=== PATIENT | male | born 1990 | race Caucasian/White ===

== ENCOUNTER 2023-05-07 20:10 | Inpatient (IN) ==
[2023-05-07] MEDS ORDERED: CEROVITE ADV FORMULA TAB PO STA (20:29)
[2023-05-07] MEDS ORDERED: THIAMINE HCL 100 MG, FOLIC ACID 1 MG in SODIUM CHLORIDE 0.9% 1000ML 1,000 ML IV STA (20:29)
[2023-05-07] MEDS ORDERED: SODIUM CHLORIDE 0.9% 1000ML 1,000 ML IV ONE (20:29)
[2023-05-07] MEDS ORDERED: LORazepam 2 MG/1 ML VIAL IV STA ×2 (20:30→21:22)
--- NOTE | 2023-05-07 20:34 | Emergency Department Note ---
History of Present Illness General Chief complaint: Detox Request Stated complaint: NAUSEA,NOT FELLING WELL Time Seen by Provider: 05/07/23 20:19 Source: patient, family (I did talk to his father on the telephone as well as hi s brother at bedside), RN notes reviewed and old records reviewed Mode of arrival: ambulatory Limitations: no limitations History of Present Illness This patient 33-year-old male has history of alcoholism comes in after not feeling well. He is vague in his symptoms but just says he has been feeling well has been drinking more than normal he has had some nausea. He has had some vomiting he thinks he may have had some slight blood. His sister is an ER physician and did give him some Zofran. He has mild abdominal discomfort/distention. No chest pain or shortness of breath no fall or trauma no suicidal thoughts. No aspirin or Tylenol use no drugs. When asked him how much he drinks he says too much. The last time he drank was 6 to 7 hours ago he says he started to feel little shaky. He says he is trying to stop drinking and is looking for rehab Home Medications Medication Instructions Recorded Confirmed Type No Known Home Medications 11/14/21 11/14/21 History Allergies Allergy/AdvReac Type Severity Reaction Status Date / Time Cephalosporins Allergy Unknown . Unverified 11/14/21 01:22 Past Med/Surg History Social History Smoking Status: Current some day smoker Preferred Language: Cambodian Feels Safe at Home: Yes Immunizations: Past medical historyalcoholismdenies diabetes or other medical problems. No blood thinner Social historylives locally. Works in a [employer] shop. Review of Systems A total of 10 systems reviewed and were otherwise negative Physical Exam Vital Signs Vital Signs - 24 hr 05/07/23 20:13 05/07/23 21:31 05/07/23 21:31 Temperature 36.7 C Temperature Source Temporal Artery Scan Pulse Rate 135 H 104 H Pulse Rate [Right Finger] Pulse Rate from SpO2 Sensor Pulse Rhythm [Right Finger] Pulse Strength [Right Finger] Respiratory Rate 15 18 Respiratory Effort / Characteristics Respiratory Depth Respiratory Pattern Blood Pressure 161/104 H 143/101 H Blood Pressure [Right Arm] Blood Pressure Mean 123 115 Blood Pressure Mean [Right Arm] Pulse Oximetry 92 93 92 Oxygen Delivery Method Room Air Room Air Nasal Cannula Oxygen Flow Rate 2 Sepsis Recent Fever Within 48 Hours No Sepsis New/Unexplained Change in Mental Status No Sepsis Action Taken by Nursing No Action Required 05/07/23 22:30 05/07/23 23:30 05/07/23 23:00 Temperature Temperature Source Pulse Rate 99 H Pulse Rate [Right Finger] 109 H Pulse Rate from SpO2 Sensor 106 H Pulse Rhythm [Right Finger] Regular Pulse Strength [Right Finger] Normal Respiratory Rate 16 16 Respiratory Effort / Characteristics Non-Labored Spontaneous Respiratory Depth Normal Respiratory Pattern Regular Blood Pressure 135/93 Blood Pressure [Right Arm] 125/87 Blood Pressure Mean 107 Blood Pressure Mean [Right Arm] 99 Pulse Oximetry 95 95 97 Oxygen Delivery Method Room Air Oxygen Flow Rate Sepsis Recent Fever Within 48 Hours Sepsis New/Unexplained Change in Mental Status Sepsis Action Taken by Nursing General: Well developed well nourished young male who appears in no acute distress, breathing comfortably on room air. Normal speech HEENT: Normal cephalic atraumatic. Pupils are equal round and reactive to light. Extraocular movements are intact. Oropharynx is pink with moist mucous membranes. No swelling of the mouth lips or tongue. Neck: Supple with a midline trachea. No meningeal signs or stiffness, no JVD or bruits. No Stridor. Chest: Clear to auscultation bilaterally. No wheezes or rhonchi. No increased work of breathing. Heart: Regular rate and rhythm without murmurs or gallops. Abdomen: Soft nontender, nondistended without rebound guarding or rigidity. Extremities: No cyanosis clubbing or edema. No calf tenderness or assymetry Spine/Back. Non tender to palpation. No CVA tenderness Skin: Good turgor without rashes. Neurologic exam: Cranial nerves two through 12 are intact. Motor and sensation are intact and symmetrical throughout. No tremor. Course Administered Medications Discontinued Medications Sodium Chloride (Nss 1000ml) 1,000 mls @ 999 mls/hr IV .Q1H1M ONE Stop: 05/07/23 21:29 Last Admin: 05/07/23 20:47 Dose: 999 mls/hr Documented By: TROY Thiamine HCl 100 mg/ Folic (Acid 1 mg/ Sodium Chloride) 1,001.2 mls @ 500 mls/hr IV .Q2H1M STA; Protocol Stop: 05/07/23 22:29 Last Admin: 05/07/23 23:26 Dose: 500 mls/hr Documented By: TROY Lorazepam (Lorazepam 2 Mg/1 Ml Vial) 1 mg IV NOW STA Stop: 05/07/23 20:31 Last Admin: 05/07/23 20:47 Dose: 1 mg Documented By: TROY Lorazepam (Lorazepam 2 Mg/1 Ml Vial) 1 mg IV NOW STA Stop: 05/07/23 21:23 Last Admin: 05/07/23 21:50 Dose: 1 mg Documented By: TROY Multivitamins/Minerals (Cerovite Adv Formula Tab) 1 tab PO ONE STA Stop: 05/07/23 20:30 Last Admin: 05/07/23 20:47 Dose: 1 tab Documented By: TROY Medical Decision Making Differential Diagnosis Alcoholism, alcohol withdrawal, electrolyte or metabolic abnormality, intra- abdominal process, GI bleed, anemia, electrolyte or metabolic abnormality, toxicologic, metabolic, infectious Medical Records Attestation: I reviewed the patient's medical records. Home Medications Current Medication List: was personally reviewed by me Laboratory Data Attestation: I reviewed the patient's lab results. 05/07/23 20:47 05/07/23 20:47 Lab Results 05/07/23 05/07/23 05/07/23 Range/Units 20:47 20:47 20:47 WBC 5.55 (4.8-10.8) K/ul RBC 4.74 (4.70-6.10) M/uL Hgb 16.0 (14.0-18.0) g/dl Hct 44.7 (42.0-52.0) % MCV 94.3 (80.0-100.0) fL MCH 33.8 (25.0-34.0) pg MCHC 35.8 (32.0-36.0) g/dL RDW Std Deviation 39.8 (36.4-46.3) fL RDW Coeff of Gracie 11.5 (11.5-14.5) % Plt Count 175 (130-400) K/uL MPV 9.1 L (9.4-12.4) fL Immature Gran % (Auto) 0.4 % Neut % (Auto) 45.9 % Lymph % (Auto) 45.0 % Collin % (Auto) 5.6 % Eos % (Auto) 2.0 % Baso % (Auto) 1.1 % Neut # (Auto) 2.55 (1.40-6.50) K/uL Lymph # (Auto) 2.50 (1.2-3.4) K/uL Collin # (Auto) 0.31 (0.11-0.59) K/uL Eos # (Auto) 0.11 (0-0.50) K/uL Baso # (Auto) 0.06 (0-0.2) K/uL Immature Gran # (Auto) 0.02 (0.01-0.20) K/uL PT 11.0 (9.0-12.0) Seconds INR 1.0 (0.9-1.1) APTT 27.2 (21.0-31.0) Seconds PTT Ratio 1.0 Sodium 139 (136-145) mmol/L Potassium 3.8 (3.5-5.1) mmol/L Chloride 99 (98-107) mmol/L Carbon Dioxide 26 (21-32) mmol/L Anion Gap 14 H (3-11) BUN 7 (6-23) mg/dl Creatinine 0.91 (0.6-1.4) mg/dl Est Cr Clr Drug Dosing 135.4 ml/min Est GFR ( Amer) 126.1 ml/min Est GFR (Non-Af Amer) 108.8 ml/min BUN/Creatinine Ratio 7.7 L (10-20) Glucose 111 H (70-99(Fasting)) mg/dl Calcium 9.2 (8.6-10.3) mg/dl Magnesium 2.4 (1.7-2.4) mg/dl Total Bilirubin 0.7 (0.2-1.0) mg/dl AST 130 H (13-39) U/L ALT 61 H (7-52) U/L Alkaline Phosphatase 110 H (34-104) U/L Total Protein 8.2 (6.0-8.3) gm/dl Albumin 4.8 (3.4-5.0) gm/dl Globulin 3.4 (2.5-4.0) gm/dl Albumin/Globulin Ratio 1.4 (0.9-2) Lipase 55 (11-82) U/L Ethyl Alcohol mg/dL (<10.0) mg/dl SARS-CoV-2, RNA, NAAT (NEGATIVE) 05/07/23 05/07/23 Range/Units 20:47 20:47 WBC (4.8-10.8) K/ul RBC (4.70-6.10) M/uL Hgb (14.0-18.0) g/dl Hct (42.0-52.0) % MCV (80.0-100.0) fL MCH (25.0-34.0) pg MCHC (32.0-36.0) g/dL RDW Std Deviation (36.4-46.3) fL RDW Coeff of Gracie (11.5-14.5) % Plt Count (130-400) K/uL MPV (9.4-12.4) fL Immature Gran % (Auto) % Neut % (Auto) % Lymph % (Auto) % Collin % (Auto) % Eos % (Auto) % Baso % (Auto) % Neut # (Auto) (1.40-6.50) K/uL Lymph # (Auto) (1.2-3.4) K/uL Collin # (Auto) (0.11-0.59) K/uL Eos # (Auto) (0-0.50) K/uL Baso # (Auto) (0-0.2) K/uL Immature Gran # (Auto) (0.01-0.20) K/uL PT (9.0-12.0) Seconds INR (0.9-1.1) APTT (21.0-31.0) Seconds PTT Ratio Sodium (136-145) mmol/L Potassium (3.5-5.1) mmol/L Chloride (98-107) mmol/L Carbon Dioxide (21-32) mmol/L Anion Gap (3-11) BUN (6-23) mg/dl Creatinine (0.6-1.4) mg/dl Est Cr Clr Drug Dosing ml/min Est GFR ( Amer) ml/min Est GFR (Non-Af Amer) ml/min BUN/Creatinine Ratio (10-20) Glucose (70-99(Fasting)) mg/dl Calcium (8.6-10.3) mg/dl Magnesium (1.7-2.4) mg/dl Total Bilirubin (0.2-1.0) mg/dl AST (13-39) U/L ALT (7-52) U/L Alkaline Phosphatase (34-104) U/L Total Protein (6.0-8.3) gm/dl Albumin (3.4-5.0) gm/dl Globulin (2.5-4.0) gm/dl Albumin/Globulin Ratio (0.9-2) Lipase (11-82) U/L Ethyl Alcohol mg/dL 433.2 H (<10.0) mg/dl SARS-CoV-2, RNA, NAAT NEGATIVE (NEGATIVE) ECG Data Attestation: I personally reviewed and interpreted this ECG as follows: Indication: + weakness Rate (beats per minute): 106 Rhythm: + sinus tachycardia ECG Intervals/blocks: + Incomplete right bundle branch block, + Normal QT and + Normal [place] ECG [place]: + Normal ECG ST segments: + Normal ST segments ECG Findings: no PACs or no PVCs Comparison ECG Date: from (03/12/18) Change: no significant change MDM Narrative This patient is a 33-year-old male who has a history of alcoholism, comes in after not feeling well. He is tachycardic and hypertensive I am worried about withdrawal. IV access was established and he was given Ativan 1 mg IV, he does not appear to be overtly shaky. Multiple blood testing was obtained including blood alcohol. He was also given banana bag with thiamine and multivitamin. He was reassessed frequently. He did receive additional Ativan 1 mg IV and is resting comfortably. His blood alcohol came back elevated at 433. He has no other significant acute electrolyte or metabolic abnormalities. His LFTs are mildly elevated. COVID test was negative. He did receive IV fluid as well as IV banana bag. I talked him at length he was having withdrawal symptoms despite having alcohol level above 400. I do think he needs to be admitted for hydration and withdrawal type symptoms he tells me that he does want to go to rehab and will be admitted for to the medical team for medical alcohol withdrawal. I discussed case with at length with Dr. Alves who will see in the ER for these measures Continuous cardiac monitoring: An order was placed in EMR for continuous cardiac monitoring: Upon my evaluation patient to be in sinus tachycardia with a rate of 100 Impression & Plan Alcohol withdrawal syndrome, Alcoholic, Alcoholic intoxication, COVID Discharge Plan Visit Data Chief Complaint: Detox Request Stated Complaint: NAUSEA,NOT FELLING WELL ED Provider: Giancarlo Qiu Discharge Problem: Alcohol withdrawal syndrome, Alcoholic, Alcoholic intoxication, COVID Forms Stand Alone Forms: [facility], Suicide Prevention Resources Prescriptions Prescriptions: No Action No Known Home Medications Referrals Referrals: Aron Cameron MD [Primary Care Provider] - Alcohol withdrawal syndrome Qualifiers: Complication of substance-induced condition: uncomplicated Qualified Code(s): F10.930 - Alcohol use, unspecified with withdrawal, uncomplicated Alcoholic intoxication Qualifiers: Complication of substance-induced condition: uncomplicated Qualified Code(s): F10.920 - Alcohol use, unspecified with intoxication, uncomplicated
[2023-05-07 21:31] LABS: Albumin Globulin Ratio 1.4 (0.9-2); Albumin Level 4.8 gm/dl (3.4-5.0); BUN Creatinine Ratio 7.7 (10-20); Bilirubin,Total 0.7 mg/dl (0.2-1.0); Calcium 9.2 mg/dl (8.6-10.3); Creatinine Clr Calc Pharmacy 135.4 ml/min; Est GFR (African American) 126.1 ml/min; Est GFR (Non-African American) 108.8 ml/min; Globulin 3.4 gm/dl (2.5-4.0); Magnesium 2.4 mg/dl (1.7-2.4); Potassium 3.8 mmol/L (3.5-5.1); Total Protein 8.2 gm/dl (6.0-8.3)
[2023-05-07 21:51] LABS: Partial Thromboplastin Time 27.2 Seconds (21.0-31.0)
[2023-05-07 21:53] LABS: Basophils # (auto) 0.06 K/uL (0-0.2); Basophils % (auto) 1.1 %; Eosinophils # (auto) 0.11 K/uL (0-0.50); Hematocrit (blood only) 44.7 % (42.0-52.0); Immature Granulocytes # (auto) 0.02 K/uL (0.01-0.20); Immature Granulocytes % (auto) 0.4 %; Mean Corpuscular Hemoglobin 33.8 pg (25.0-34.0); Mean Corpuscular Hgb Conc 35.8 g/dL (32.0-36.0); Mean Corpuscular Volume 94.3 fL (80.0-100.0); Mean Platelet Volume 9.1 fL (9.4-12.4); Monocytes # (auto) 0.31 K/uL (0.11-0.59); Monocytes % (auto) 5.6 %; Neutrophils # (auto) 2.55 K/uL (1.40-6.50); Neutrophils % (auto) 45.9 %; Platelet Count 175 K/uL (130-400); RDW Coefficient of Variation 11.5 % (11.5-14.5); RDW Standard Deviation 39.8 fL (36.4-46.3); Red Blood Count 4.74 M/uL (4.70-6.10); White Blood Count 5.55 K/ul (4.8-10.8)
--- NOTE | 2023-05-07 22:53 | History & Physical Report ---
Date of Service May 07, 2023 Assessment & Plan (1) Alcohol withdrawal syndrome: Plan: Collin Alejandro is a 33yo male with history of alcohol abuse presenting with complaint of withdrawal. He drinks 10 12oz high EtOH beers daily (appx 18-20 units of EtOH/day). Last drink was appx 8 hours prior to arrival. He has been cutting back for the last several days - has had mild withdrawal symptoms x 2 days. EtOH level of 433 -Admit to PCU -Librium taper -Ativan as needed -Thiamine and Folic acid -Zofran as needed for nausea -Tylenol as needed for pain or fever -Acute alcohol hepatitis with AST of 130, ALT of 61 - expected 2:1 pattern. No evidence of synthetic dysfunction - INR, platelets, Albumin WNL F/E/N - Heplock. Electrolytes WNL. NPO with chips/sips Ppx - low risk for DVT Code - full Dispo -Admit to PCU History of Present Illness Chief Complaint: EtOH withdrawal Primary Care Provider: Aron Cameron MD Collin Alejandro is a 33yo male with history of EtOH abuse, prior withdrawal presenting with EtOH intoxication - possible withdrawal symptoms. Patient reports drinking approximately 10 12oz high alcohol (8%) beers daily. Last drink was approximately 8 hours prior to arrival. He denies drinking liquor or wine. Denies additional substance use. He has been trying to cut down on his alcohol intake for the last several days. He developed some mild withdrawal symptoms today prior to arrival - symptoms have been progressing over the last two days. ER Course: Ativan MVI Banana bag Allergies Allergy/AdvReac Type Severity Reaction Status Date / Time Cephalosporins Allergy Unknown . Unverified 11/14/21 01:22 Home Medications Medication Instructions Recorded Confirmed Type No Known Home Medications 11/14/21 11/14/21 History Past Med/Surg History Medical History Alcohol abuse Surgical History (Updated 05/08/23 @ 05:27 by Katerin Alves DO) No significant past surgical history Family History (Updated 05/08/23 @ 05:27 by Katerin Alves DO) Other Thyroid disease Social History Smoking Status: Current some day smoker Cigarettes Per Day: Half a pack per week; Second Hand Exposure: No; Do You Dip or Chew Tobacco: No; Tobacco Cessation Education Requested by Patient: No Hx Alcohol Use: Yes Alcohol type: beer Hx Substance Use: No Preferred Language: Wallisian Communication Ability: Effective Data Miner Required: No Beliefs That Will Affect Care: None Current Living Situation: Parent and Family Current Living Situation Comment: Lives with brother and sometimes parents Other Information That Helps Us Care for You: No Feels Safe at Home: Yes Safety Concerns: Feels Safe At This Time Assistive Devices: None Review of Systems Review of Systems: All systems reviewed & are unremarkable except as noted in HPI & below Physical Exam Physical Exam: General: patient resting comfortably, NAD, non-toxic in appearance, AA&O x 4 Skin: warm, dry, intact, no rashes or lesions HEENT: NC/AT, PERRL, EOMI, anicteric sclera, conjunctiva without injection, external ear normal to inspection and nontender, nares patent, moist mucus membranes, dentition intact, no oropharyngeal lesions, neck supple, trachea midline, no LAD, no thyromegaly, no JVD Heart: +S1/S2, regular, tachycardic, no m/r/g Lungs: equal air entry bilaterally, no rales/rhonchi/wheezes Abd: +BS, soft, NT/ND, no masses/organomegaly/ascites Ext: warm, 2+ pulses in UE/LE bilaterally, no clubbing/cyanosis or edema Neuro: nonfocal, patient AA&O x 4, speech intact, no facial droop, moving all extremities on command with equal strength 5/5 Results & Data Results & Data Vital Signs (Past 12 Hours) Vital Signs Temp Pulse Resp BP Pulse Ox O2 Del Method O2 Flow Rate 05/07/23 22:30 99 H 135/93 95 05/07/23 21:31 104 H 18 143/101 H 92 Nasal Cannula 2 05/07/23 21:31 93 Room Air 05/07/23 20:13 36.7 C 135 H 15 161/104 H 92 Room Air Laboratory Results Laboratory Results WBC 5.55 K/ul (4.8-10.8) 05/07/23 20:47 RBC 4.74 M/uL (4.70-6.10) 05/07/23 20:47 Hgb 16.0 g/dl (14.0-18.0) 05/07/23 20:47 Hct 44.7 % (42.0-52.0) 05/07/23 20:47 MCV 94.3 fL (80.0-100.0) 05/07/23 20:47 MCH 33.8 pg (25.0-34.0) 05/07/23 20:47 MCHC 35.8 g/dL (32.0-36.0) 05/07/23 20: RDW Std Deviation 39.8 fL (36.4-46.3) 05/07/23 20: RDW Coeff of Gracie 11.5 % (11.5-14.5) 05/07/23 20: Plt Count 175 K/uL (130-400) 05/07/23 20: MPV 9.1 fL (9.4-12.4) L 05/07/23 20:47 Immature Gran % (Auto) 0.4 % 05/07/23 20:47 Neut % (Auto) 45.9 % 05/07/23 20:47 Lymph % (Auto) 45.0 % 05/07/23 20:47 [place] % (Auto) 5.6 % 05/07/23 20:47 Eos % (Auto) 2.0 % 05/07/23 20:47 Baso % (Auto) 1.1 % 05/07/23 20:47 Neut # (Auto) 2.55 K/uL (1.40-6.50) 05/07/23 20:47 Lymph # (Auto) 2.50 K/uL (1.2-3.4) 05/07/23 20:47 [place] # (Auto) 0.31 K/uL (0.11-0.59) 05/07/23 20:47 Eos # (Auto) 0.11 K/uL (0-0.50) 05/07/23 20:47 Baso # (Auto) 0.06 K/uL (0-0.2) 05/07/23 20:47 Immature Gran # (Auto) 0.02 K/uL (0.01-0.20) 05/07/23 20:47 PT 11.0 Seconds (9.0-12.0) 05/07/23 20:47 INR 1.0 (0.9-1.1) 05/07/23 20:47 APTT 27.2 Seconds (21.0-31.0) 05/07/23 20:47 PTT Ratio 1.0 05/07/23 20:47 Sodium 139 mmol/L (136-145) 05/07/23 20:47 Potassium 3.8 mmol/L (3.5-5.1) 05/07/23 20:47 Chloride 99 mmol/L (98-107) 05/07/23 20:47 Carbon Dioxide 26 mmol/L (21-32) 05/07/23 20:47 Anion Gap 14 (3-11) H 05/07/23 20:47 BUN 7 mg/dl (6-23) 05/07/23 20:47 Creatinine 0.91 mg/dl (0.6-1.4) 05/07/23 20:47 Est Cr Clr Drug Dosing 135.4 ml/min 05/07/23 20:47 Est GFR ( Amer) 126.1 ml/min 05/07/23 20:47 Est GFR (Non-Af Amer) 108.8 ml/min 05/07/23 20:47 BUN/Creatinine Ratio 7.7 (10-20) L 05/07/23 20:47 Glucose 111 mg/dl (70-99(Fasting)) H 05/07/23 20:47 Calcium 9.2 mg/dl (8.6-10.3) 05/07/23 20:47 Magnesium 2.4 mg/dl (1.7-2.4) 05/07/23 20:47 Total Bilirubin 0.7 mg/dl (0.2-1.0) 05/07/23 20:47 AST 130 U/L (13-39) H 05/07/23 20:47 ALT 61 U/L (7-52) H 05/07/23 20:47 Alkaline Phosphatase 110 U/L (34-104) H 05/07/23 20:47 Total Protein 8.2 gm/dl (6.0-8.3) 05/07/23 20:47 Albumin 4.8 gm/dl (3.4-5.0) 05/07/23 20:47 Globulin 3.4 gm/dl (2.5-4.0) 05/07/23 20:47 Albumin/Globulin Ratio 1.4 (0.9-2) 05/07/23 20:47 Lipase 55 U/L (11-82) 05/07/23 20:47 Ethyl Alcohol mg/dL 433.2 mg/dl (<10.0) H 05/07/23 20:47 SARS-CoV-2, RNA, NAAT NEGATIVE (NEGATIVE) 05/07/23 20:47 PG Care Time/CCT Total # of Minutes Spent Total Time Spent with Patient: Total time spent is greater than 50% in coordination of care (as documented) at patient's floor/unit and/or counseling patient: Coding Level of Care Code 51179 INT INP/OBS CARE 2/55MIN Diagnoses Alcohol withdrawal syndrome F10.930 Complication of substance-induced condition: uncomplicated (1) Alcohol withdrawal syndrome Complication of substance-induced condition: uncomplicated Qualified Code(s): F10.930 - Alcohol use, unspecified with withdrawal, uncomplicated
[2023-05-08] MEDS ORDERED: chlordiazePOXIDE ALCOHOL WITHDRAWL 50MG PO STA (00:32)
[2023-05-08] MEDS ORDERED: ACETAMINOPHEN 325 MG TAB PO PRN (00:32)
[2023-05-08] MEDS ORDERED: LORazepam 2 MG/1 ML VIAL IV PRN ×3 (00:32)
[2023-05-08] MEDS ORDERED: chlordiazePOXIDE HCl 25 MG CAP PO SCH (00:32)
[2023-05-08] MEDS ORDERED: chlordiazePOXIDE ALCOHOL WITHDRAWL 25MG PO STA (00:32)
[2023-05-08] MEDS ORDERED: ONDANSETRON INJ 2 MG/ML 2 ML VIAL IV PRN (00:32)
[2023-05-08] MEDS ORDERED: Ativan IV Alcohol Withdrawal--Active Protocol IV PRN (00:32)
[2023-05-08] MEDS: chlordiazePOXIDE HCl 25 MG CAP PO SCH ×4 (01:11→18:00)
[2023-05-08] MEDS: SODIUM CHLORIDE 0.9% 1000ML 1,000 ML IV SCH ×2 (03:32→11:49)
[2023-05-08 06:50] LABS: Hematocrit (blood only) 39.1 % (42.0-52.0); Hemoglobin 13.9 g/dl (14.0-18.0); Mean Corpuscular Hemoglobin 33.5 pg (25.0-34.0); Mean Corpuscular Hgb Conc 35.5 g/dL (32.0-36.0); Mean Corpuscular Volume 94.2 fL (80.0-100.0); Mean Platelet Volume 9.1 fL (9.4-12.4); Platelet Count 127 K/uL (130-400); RDW Coefficient of Variation 11.4 % (11.5-14.5); RDW Standard Deviation 39.5 fL (36.4-46.3); Red Blood Count 4.15 M/uL (4.70-6.10); White Blood Count 4.82 K/ul (4.8-10.8)
--- NOTE | 2023-05-08 06:52 | Hospitalist Progress Note ---
Date of Service May 08, 2023 Assessment & Plan (1) Alcohol withdrawal syndrome: (2) Transaminitis: (3) Alcoholic: Plan Collin Alejandro is a 33yo male with history of alcohol abuse presenting with complaint of withdrawal. He drinks 10 12oz high EtOH beers daily (appx 18-20 units of EtOH/day). Last drink was appx 8 hours prior to arrival. He has been cutting back for the last several days - has had mild withdrawal symptoms x 2 days. EtOH level of 433 at time of admission. Alcohol withdrawal syndrome -Librium taper -Ativan as needed -Thiamine and Folic acid -Zofran as needed for nausea -Tylenol as needed for pain or fever -No signs of DTs Alcoholic -Case management consulted to discuss resources for alcohol abstinence and possible rehab. -Can be further discussed once patient has gone through withdrawal. Transaminitis (resolved) -Acute alcohol hepatitis with AST of 130, ALT of 61 - expected 2:1 pattern. No evidence of synthetic dysfunction - INR, platelets, Albumin WNL -AST downtrending and ALT within normal limits on 05/08. F/E/N - Heplock. Electrolytes WNL. NPO with chips/sips Ppx - low risk for DVT Code - full Dispo -Admit to PCU Admission and Anticipated Discharge Date Admission Date: May 07, 2023 Supervising Physician Co-Signing Physician Notes I personally examined the patient and verified all joe points of history and exam, discussed case, and agree with decision making and plan documented by Dr. Carballo. Patient resting comfortably in bed during exam. He has a longstanding history of alcohol abuse, notes that prior to admission he was drinking approximately twelve 9% beers daily. Patient is interested in pursuing rehabilitation, case management has been notified to assist. Subjective Patient seen bedside this morning. He states that he has been doing fine. He feels tired and a little shaky. He does state that with his previous alcohol withdrawals he has not had any delirium tremors or seizures. He denies any abdominal pain, nausea, or vomiting. With discussing alcohol history patient has stopped for about 3 months in the summer 2017. He then switched from liquid to beer. He is interested in seeking resources to help with his alcohol addiction. Review of Systems Review of Systems: All systems reviewed & are unremarkable except as noted in Subjective Physical Exam Physical Exam: Constitutional: well-appearing, no acute distress HEENT: NCAT, no conjunctival injection CV: regular rhythm, no murmur appreciated, extremities well-perfused, no LE edema Resp: CTABL, no wheezes/rales/rhonchi appreciated, no increased work of breathing GI: soft, nondistended, nontender, BS normoactive MSK: no gross deformities appreciated Skin: warm, dry, no rash appreciated Neuro: alert, oriented, no focal neurologic deficit appreciated Results & Data Results & Data Vital Signs (Past 12 Hours) Vital Signs Temp Pulse Pulse Resp BP BP Pulse Ox 05/08/23 03:00 36.6 C 122 H 23 103/66 92 05/08/23 00:32 37.2 C 117 H 16 129/101 H 96 05/08/23 00:55 108 H 05/08/23 00:32 05/07/23 23:00 16 97 05/07/23 23:30 109 H 16 125/87 95 05/07/23 22:30 99 H 135/93 95 05/07/23 21:31 104 H 18 143/101 H 92 05/07/23 21:31 93 05/07/23 20:13 36.7 C 135 H 15 161/104 H 92 Pulse Ox O2 Del Method O2 Del Method O2 Flow Rate 05/08/23 03:00 Room Air 05/08/23 00:32 Room Air 05/08/23 00:55 05/08/23 00:32 95 Room Air 05/07/23 23:00 05/07/23 23:30 Room Air 05/07/23 22:30 05/07/23 21:31 Nasal Cannula 2 05/07/23 21:31 Room Air 05/07/23 20:13 Room Air Laboratory Results 05/08/23 06:30 05/08/23 06:30 Resident Activity Tracking Resident Involvement: Resident Care Provided Care Provided: Adult Hospital Medicine (1) Alcohol withdrawal syndrome Complication of substance-induced condition: uncomplicated Qualified Code(s): F10.930 - Alcohol use, unspecified with withdrawal, uncomplicated
[2023-05-08 07:11] LABS: Albumin Level 4.1 gm/dl (3.4-5.0); Bilirubin Direct 0.3 mg/dl (0-0.2); Bilirubin,Total 0.9 mg/dl (0.2-1.0); Calcium 8.1 mg/dl (8.6-10.3); Creatinine Clr Calc Pharmacy 151.7 ml/min; Est GFR (African American) 132.8 ml/min; Est GFR (Non-African American) 114.6 ml/min; Potassium 3.7 mmol/L (3.5-5.1)
[2023-05-08] MEDS: THIAMINE HCL 100 MG TAB PO SCH (08:37)
[2023-05-08] MEDS: FOLIC ACID 1 MG TAB PO SCH (08:37)
--- NOTE | 2023-05-08 14:11 | Electrocardiogram Report ---
Test Reason : Blood Pressure : / mmHG Vent. Rate : 106 BPM Atrial Rate : 106 BPM P-R Int : 198 ms QRS Dur : 108 ms QT Int : 334 ms P-R-T Axes : 056 082 014 degrees QTc Int : 443 ms Sinus tachycardia Incomplete right bundle branch block Cannot rule out Anterior infarct (cited on or before 12-MAR-2018) Abnormal ECG When compared with ECG of 12-MAR-2018 13:05, Incomplete right bundle branch block is now Present Questionable change in initial forces of Anterior leads Confirmed by Van Avery ([id number]) on 05/08/2023 2:11:06 PM Referred By: REFERRED SELF Confirmed By:Van Avery
[2023-05-08 14:45] LABS: Appearance Urine Clear (Clear); Bilirubin Urine Negative (Negative); Blood Urine Negative (Negative); Color Urine Dark Yellow; Glucose Urine UA Negative (Negative); Ketones Urine Trace (Negative); Leukocyte Esterase Urine Negative (Negative); Nitrite Urine Negative (Negative); Protein Urine Negative (Negative); Specific Gravity Urine 1.017 (1.000-1.030); Urobilinogen Urine Negative (Negative); pH Urine 5.5 (4.5-7.5)
[2023-05-08] MEDS ORDERED: MELATONIN 3 MG TAB PO PRN (22:00)
[2023-05-09] MEDS ORDERED: chlordiazePOXIDE HCl 25 MG CAP PO SCH (01:00)
[2023-05-09] MEDS: chlordiazePOXIDE HCl 25 MG CAP PO SCH ×3 (04:01→20:08)
--- NOTE | 2023-05-09 06:47 | Hospitalist Progress Note ---
Date of Service May 09, 2023 Assessment & Plan (1) Alcohol withdrawal syndrome: (2) Transaminitis: (3) Alcoholic: Plan Collin Alejandro is a 33yo male with history of alcohol abuse presenting with complaint of withdrawal. He drinks 10 12oz high EtOH beers daily (appx 18-20 units of EtOH/day). Last drink was appx 8 hours prior to arrival. He has been cutting back for the last several days - has had mild withdrawal symptoms x 2 days. EtOH level of 433 at time of admission. Alcohol withdrawal syndrome -Librium taper, end on 05/11. -Ativan as needed. So far has not needed any Ativan. -Thiamine and Folic acid daily. -Zofran as needed for nausea -Tylenol as needed for pain or fever -No signs of DTs Alcoholic -Case management consulted to discuss resources for alcohol abstinence and possible rehab. -Resources given to the patient on 05/09. We will look into possibly doing rehab though may be difficult to get in to inpatient rehab given lack of health insurance. Transaminitis -At time of admission, acute alcohol hepatitis with AST of 130, ALT of 61 - expected 2:1 pattern. No evidence of synthetic dysfunction - INR, platelets, Albumin WNL -On 05/09 AST increased to 430, ALT to 125, alk phos elevated, and an elevated bilirubin of 2.8. Decreased platelet count. Albumin stable at this point. -PT/INR and lipase were normal. Will order right upper quadrant ultrasound and consider CT though patient is not having much pain at this time. -(-0.4 points) discriminant function, no need for glucocorticoid therapy at this time. We will continue to monitor. -We will get repeat labs at 1500 today. F/E/N - Heplock. Electrolytes WNL. We will advance diet as tolerated. Ppx - low risk for DVT Code - full Dispo -Admit to PCU Admission and Anticipated Discharge Date Admission Date: May 07, 2023 Supervising Physician Co-Signing Physician Notes I personally examined the patient and verified all joe points of history and exam, discussed case, and agree with decision making and plan documented by Dr. Carballo. Patient resting comfortably in bed, states that shakiness has improved, no tremor on exam, last AWSS 1, VSS. Acute alcoholic hepatitis with elevation of AST and ALT in addition to bilirubin present. We will continue to monitor LFTs for continued downward trend. Repeat ultrasound pending, patient with known hepatic steatosis. Patient interested in rehabilitation but is without insurance coverage, per patient he has been working with case management for application to Medicaid. Subjective Patient was seen bedside this morning. He is no longer shaky. He denies any current nausea or vomiting. Did have some nausea last night but improved with nausea meds. Denies any abdominal pain or chest pain. Denies any hallucinations or tremors. Review of Systems Review of Systems: All systems reviewed & are unremarkable except as noted in Subjective Physical Exam Physical Exam: Constitutional: well-appearing, no acute distress HEENT: NCAT, no conjunctival injection CV: regular rhythm, no murmur appreciated, extremities well-perfused, no LE edema Resp: CTABL, no wheezes/rales/rhonchi appreciated, no increased work of breathing GI: soft, nondistended, mild right upper quadrant tenderness, BS normoactive MSK: no gross deformities appreciated Skin: warm, dry, no rash appreciated Neuro: alert, oriented, no focal neurologic deficit appreciated Results & Data Results & Data Vital Signs (Past 12 Hours) Vital Signs Temp Pulse Pulse Resp BP Pulse Ox O2 Del Method 05/09/23 03:47 36.9 C 75 18 118/75 96 Room Air 05/08/23 22:10 79 05/08/23 23:00 36.7 C 72 19 124/84 95 Room Air 05/08/23 21:40 36.8 C 77 16 145/86 H 96 Room Air 05/08/23 19:00 36.7 C 78 20 128/78 97 Room Air Laboratory Results 05/09/23 06:57 05/09/23 06:57 Resident Activity Tracking Resident Involvement: Resident Care Provided Care Provided: Adult Hospital Medicine (1) Alcohol withdrawal syndrome Complication of substance-induced condition: uncomplicated Qualified Code(s): F10.930 - Alcohol use, unspecified with withdrawal, uncomplicated
[2023-05-09 07:44] LABS: Albumin Globulin Ratio 1.5 (0.9-2); Albumin Level 3.9 gm/dl (3.4-5.0); BUN Creatinine Ratio 21.9 (10-20); Bilirubin,Total 2.8 mg/dl (0.2-1.0); Creatinine Clr Calc Pharmacy 196.3 ml/min; Est GFR (Non-African American) 126.9 ml/min; Globulin 2.6 gm/dl (2.5-4.0); Potassium 3.9 mmol/L (3.5-5.1); Total Protein 6.5 gm/dl (6.0-8.3)
[2023-05-09 07:48] LABS: Hematocrit (blood only) 35.7 % (42.0-52.0); Hemoglobin 12.6 g/dl (14.0-18.0); Mean Corpuscular Hemoglobin 34.2 pg (25.0-34.0); Mean Corpuscular Hgb Conc 35.3 g/dL (32.0-36.0); Mean Platelet Volume 9.4 fL (9.4-12.4); Platelet Count 95 K/uL (130-400); Platelet Estimate Decreased (Normal); RDW Coefficient of Variation 11.3 % (11.5-14.5); RDW Standard Deviation 40.2 fL (36.4-46.3); Red Blood Count 3.68 M/uL (4.70-6.10); White Blood Count 4.57 K/ul (4.8-10.8)
[2023-05-09] MEDS: THIAMINE HCL 100 MG TAB PO SCH (08:07)
[2023-05-09] MEDS: FOLIC ACID 1 MG TAB PO SCH (08:07)
[2023-05-09 10:58] LABS: Prothrombin Time 11.3 Seconds (9.0-12.0)
[2023-05-09] MEDS: SODIUM CHLORIDE 0.9% 1000ML 1,000 ML IV SCH ×2 (14:57→23:18)
[2023-05-09 15:56] LABS: Albumin Globulin Ratio 1.5 (0.9-2); Albumin Level 4.1 gm/dl (3.4-5.0); BUN Creatinine Ratio 15.6 (10-20); Bilirubin,Total 2.5 mg/dl (0.2-1.0); Calcium 8.2 mg/dl (8.6-10.3); Creatinine Clr Calc Pharmacy 196.3 ml/min; Est GFR (Non-African American) 126.9 ml/min; Globulin 2.8 gm/dl (2.5-4.0); Potassium 4.2 mmol/L (3.5-5.1); Total Protein 6.9 gm/dl (6.0-8.3)
--- NOTE | 2023-05-09 18:49 | Ultrasound Report ---
US liver CLINICAL HISTORY: Elevated AST/ALT, bilirubin, alk phos w/ tenderness TECHNIQUE: Multiple real-time sonographic images of the right upper quadrant were obtained. Comparison: Comparison is made to bilateral quadrant ultrasound 03/13/2018 FINDINGS: The liver is diffusely echogenic in appearance with poor ultrasound penetration, with normal contour, which is consistent with fatty infiltration. No focal mass lesions are seen. No intrahepatic duct al dilatation is seen. No gallstones or sludge are identified within the gallbladder. The gallbladde r wall is not thickened. There is no pericholecystic fluid present. A sonographic Pantoja's sign was n ot elicited by the sport intern. The common duct measures 0.3 cm in diameter at the level of the hep atic artery. The visualized portions of the pancreas appear normal. The right kidney shows normal echogenicity, cortical thickness and renal contour. The right kidney sh ows no evidence of hydronephrosis or mass. No ascites or free fluid is seen in Sorto's pouch. IMPRESSION: Hepatic steatosis without other acute abnormalities. ACT 112: Negative or not required by law. Electronically signed by: Michael Kwon M.D. 05/09/2023 6:48 PM
[2023-05-10] MEDS ORDERED: chlordiazePOXIDE HCl 25 MG CAP PO SCH (01:00)
[2023-05-10 06:39] LABS: Basophils # (auto) 0.03 K/uL (0-0.2); Basophils % (auto) 0.8 %; Eosinophils # (auto) 0.24 K/uL (0-0.50); Eosinophils % (auto) 6.6 %; Hematocrit (blood only) 34.4 % (42.0-52.0); Hemoglobin 12.3 g/dl (14.0-18.0); Immature Granulocytes # (auto) 0.01 K/uL (0.01-0.20); Immature Granulocytes % (auto) 0.3 %; Lymphocytes # (auto) 0.94 K/uL (1.2-3.4); Lymphocytes % (auto) 25.8 %; Mean Corpuscular Hemoglobin 33.7 pg (25.0-34.0); Mean Corpuscular Hgb Conc 35.8 g/dL (32.0-36.0); Mean Corpuscular Volume 94.2 fL (80.0-100.0); Mean Platelet Volume 9.4 fL (9.4-12.4); Monocytes # (auto) 0.19 K/uL (0.11-0.59); Monocytes % (auto) 5.2 %; Neutrophils # (auto) 2.24 K/uL (1.40-6.50); Neutrophils % (auto) 61.3 %; Platelet Count 51 K/uL (130-400); RDW Coefficient of Variation 11.1 % (11.5-14.5); RDW Standard Deviation 38.3 fL (36.4-46.3); Red Blood Count 3.65 M/uL (4.70-6.10); White Blood Count 3.65 K/ul (4.8-10.8)
[2023-05-10 06:58] LABS: Albumin Globulin Ratio 1.4 (0.9-2); Albumin Level 3.7 gm/dl (3.4-5.0); BUN Creatinine Ratio 9.2 (10-20); Creatinine Clr Calc Pharmacy 191.1 ml/min; Est GFR (African American) 146.1 ml/min; Globulin 2.6 gm/dl (2.5-4.0); Potassium 3.9 mmol/L (3.5-5.1); Total Protein 6.3 gm/dl (6.0-8.3)
[2023-05-10 07:04] LABS: Prothrombin Time 11.4 Seconds (9.0-12.0)
--- NOTE | 2023-05-10 07:30 | Hospitalist Progress Note ---
Date of Service May 10, 2023 Assessment & Plan (1) Alcohol withdrawal syndrome: (2) Transaminitis: (3) Alcoholic: Plan Collin Alejandro is a 33yo male with history of alcohol abuse who presented in withdrawal. He drinks 10 12oz high EtOH beers daily (appx 18-20 units of EtOH /day). Last drink was appx 8 hours prior to arrival 05/07/23. He has been cutting back for the last several days - has had mild withdrawal symptoms x 2 days prior to arrival. EtOH level of 433 at time of admission. Alcohol withdrawal syndrome - Librium taper, end on 05/11. - Ativan PRN (patient has not required) - Thiamine and Folic acid daily. - Zofran PRN for nausea - Tylenol PRN for pain/fever --- No active tremors or evidence of DT, vitals stable, no active hallucination --- Patient requesting dispo to rehabilitation facility and evaluation for underlying depression Alcohol Abuse - CM consulted for assistance with disposition planning, requesting rehabilitation * Patient currently w/o insurance, will likely benefit from medical assistance, CM following - Resources given to the patient on 05/09 --- Patient and parents expressed interest in [facility] (w/ mental health resources) Transaminitis - Acute alcohol hepatitis/transaminitis present on admission (AST 130/ALT 61), INR/platelets/albumin wnl * On 05/09 labs elevated to: AST 430/ALT 125, alk phos elevated, elevated bilirubin 2.8, decreased platelet count, albumin stable No active abdominal pain, nausea, or emesis Liver US - hepatic steatosis, no additional abnormalities * On 05/10 labs improving: AST, ALT, Alk Phos, Bilirubin downtrending, Plt count 50, continue to follow (no active bleeding) No active abdominal pain, nausea, or emesis - No need for glucocorticoid therapy at this time. * (-0.4 points) discriminant function --- Labs improving, patient remains asymptomatic F/E/N - Heplock. Electrolytes wnl. ADAT. IVF d/c 05/10. Ppx - Low risk for DVT, ambulation as tolerated Code - Full Dispo - Admit to PCU Admission and Anticipated Discharge Date Admission Date: May 07, 2023 Supervising Physician Co-Signing Physician Notes I personally examined the patient and verified all joe points of history and exam, discussed case, and agree with decision making with Dr Salinas feeling better overall. Discussing with family plans for going to an inpatient facility with dual diagnosis capabilities. Aware that underlying anxiety/depression type issues are likely driving the alcohol abuse. Family present at the bedside and supportive. Vitals noted, in general he is awake and alert pleasant no distress. HEENT normocephalic atraumatic mucous membranes moist. Breathing unlabored no accessory muscle use good effort. Skin shows no rashes no pallor or icterus. Neuro without focal deficits. Alcohol abuse/withdrawalimproving. Anxiety/depression likely underlyingagree with her plan for transfer to a dual diagnosis facility. Right now keep him in the hospital and arrangements are being made and to keep him safe. Extensive discussion on self management for anxiety and depression/active stress management. He expressed good understanding and appreciation. Otherwise as above. Subjective 05/10: Patient resting comfortably in bed upon arrival, parents at bedside. Patient denies tremors, hallucinations, nausea, or emesis. He is not experiencing any abdominal pain, chest pain, headaches, dyspnea, fevers, or chills. Parent's expressed concern regarding underlying depression, patient in agreement. Upon discussion, family requesting psychiatry evaluation while inpatient. Patient would like to proceed with placement in rehab. Physical Exam Physical Exam: Gen: NAD, alert, interactive Neuro: AO x 3, no focal neurologic deficits HEENT: NCAT, no conjunctival injections Resp:Non-labored, no wheezing/rhonchi/rales, CTAB CV:RRR, normal S1/S2, no M/R/G Abd: Soft, non-distended, no TTP, normoactive bowels, no masses Extr: 2+ dp bilaterally, no edema, no tremors appreciated, strength 5/5 in UE and LE Skin: No rashes lesions or erythema Results & Data Results & Data Vital Signs (Past 12 Hours) Vital Signs Temp Pulse Pulse Resp BP BP Pulse Ox 05/10/23 07:22 36.7 C 73 16 115/80 95 05/10/23 03:00 36.7 C 77 16 105/70 96 05/09/23 22:00 79 05/09/23 23:00 36.9 C 74 17 142/92 H 96 O2 Del Method 05/10/23 07:22 Room Air 05/10/23 03:00 Room Air 05/09/23 22:00 05/09/23 23:00 Room Air Resident Activity Tracking Resident Involvement: Resident Care Provided Care Provided: Adult Hospital Medicine (1) Alcohol withdrawal syndrome Complication of substance-induced condition: uncomplicated Qualified Code(s): F10.930 - Alcohol use, unspecified with withdrawal, uncomplicated
[2023-05-10] MEDS: THIAMINE HCL 100 MG TAB PO SCH (08:07)
[2023-05-10] MEDS: FOLIC ACID 1 MG TAB PO SCH (08:07)
--- NOTE | 2023-05-10 18:38 | Billing Data ---
Date of Service May 10, 2023 Coding Level of Care Code 80988 SUB INP/OBS CARE MIN
[2023-05-11] MEDS: chlordiazePOXIDE HCl 5 MG CAP PO SCH ×2 (06:18→18:22)
[2023-05-11 06:37] LABS: Hematocrit (blood only) 35.6 % (42.0-52.0); Hemoglobin 12.5 g/dl (14.0-18.0); Mean Corpuscular Hgb Conc 35.1 g/dL (32.0-36.0); Mean Corpuscular Volume 96.7 fL (80.0-100.0); Mean Platelet Volume 10.2 fL (9.4-12.4); Platelet Count 71 K/uL (130-400); RDW Coefficient of Variation 11.2 % (11.5-14.5); RDW Standard Deviation 40.4 fL (36.4-46.3); Red Blood Count 3.68 M/uL (4.70-6.10); White Blood Count 4.09 K/ul (4.8-10.8)
[2023-05-11 06:58] LABS: Albumin Globulin Ratio 1.4 (0.9-2); Albumin Level 3.9 gm/dl (3.4-5.0); BUN Creatinine Ratio 10.1 (10-20); Bilirubin,Total 1.4 mg/dl (0.2-1.0); Calcium 8.9 mg/dl (8.6-10.3); Creatinine Clr Calc Pharmacy 179.9 ml/min; Est GFR (African American) 142.6 ml/min; Globulin 2.8 gm/dl (2.5-4.0); Potassium 3.7 mmol/L (3.5-5.1); Total Protein 6.7 gm/dl (6.0-8.3)
--- NOTE | 2023-05-11 07:18 | Hospitalist Progress Note ---
Date of Service May 11, 2023 Assessment & Plan (1) Alcohol withdrawal syndrome: (2) Transaminitis: (3) Alcoholic: Plan Collin Alejandro is a 33yo male with history of alcohol abuse who presented in withdrawal. He drinks 10 12oz high EtOH beers daily (appx 18-20 units of EtOH /day). Last drink was appx 8 hours prior to arrival 05/07/23. He has been cutting back for the last several days - has had mild withdrawal symptoms x 2 days prior to arrival. EtOH level of 433 at time of admission. Alcohol withdrawal syndrome - Librium taper, end on 05/11. - Ativan PRN (patient has not required) - Thiamine and Folic acid daily. - Zofran PRN for nausea - Tylenol PRN for pain/fever --- No active tremors or evidence of DT, vitals stable, no active hallucination --- Librium taper to end today, continue to follow clinically Alcohol Abuse - CM consulted for assistance with disposition planning, requesting rehabilitation * Patient currently w/o insurance, will likely benefit from medical assistance, CM following - Resources given to the patient on 05/09 --- --- CM aware of dispo plans to rehab facility, pending medical assistance and placement Transaminitis - Acute alcohol hepatitis/transaminitis present on admission (AST 130/ALT 61), INR/platelets/albumin wnl * On 05/09 labs elevated to: AST 430/ALT 125, alk phos elevated, elevated bilirubin 2.8, decreased platelet count, albumin stable No active abdominal pain, nausea, or emesis Liver US - hepatic steatosis, no additional abnormalities * On 05/11 labs improving: AST, ALT, Alk Phos, Bilirubin downtrending, Plt count up to 70, continue to follow (no active bleeding) No active abdominal pain, nausea, or emesis - No need for glucocorticoid therapy at this time. * (-0.4 points) discriminant function --- Labs improving, patient remains asymptomatic F/E/N - Heplock. Electrolytes wnl. ADAT. IVF d/c 05/10. Ppx - Low risk for DVT, ambulation as tolerated Code - Full Dispo - Admit to PCU Admission and Anticipated Discharge Date Admission Date: May 07, 2023 Supervising Physician Co-Signing Physician Notes I personally examined the patient and verified all joe points of history and exam, discussed case, and agree with decision making with Dr Salinas no new issues or complaints. offered encouragement and answered all questions to the best of my ability Vitals noted, in general he is awake and alert pleasant no distress. HEENT normocephalic atraumatic mucous membranes moist. Breathing unlabored no accessory muscle use good effort. Skin shows no rashes no pallor or icterus. Neuro without focal deficits. Alcohol abuse/withdrawalimproving. Anxiety/depression likely underlyingagree with her plan for transfer to a dual diagnosis facility. Right now keep him in the hospital and arrangements are being made and to keep him safe. yesterday had extensive discussion on self management for anxiety and depression/active stress management. He expressed good understanding and appreciation. today reiterated relevance and discussed medical details more Subjective 05/11: Patient resting comfortably in bed Patient denies tremors, hallucinations, nausea, or emesis. He is not experiencing any abdominal pain, chest pain, headaches, dyspnea, fevers, or chills. He notes that he is optimistic for discharge to rehab facility and plans to continue treatment for underlying anxiety/depression. Questions and concerns addressed. Physical Exam Physical Exam: Gen: NAD, alert, interactive Neuro: AO x 3, no focal neurologic deficits HEENT: NCAT, no conjunctival injections Resp:Non-labored, no wheezing/rhonchi/rales, CTAB CV:RRR, normal S1/S2, no M/R/G Abd: Soft, non-distended, no TTP, normoactive bowels, no masses Extr: 2+ dp bilaterally, no edema, no tremors appreciated, strength 5/5 in UE and LE Skin: No rashes lesions or erythema Results & Data Results & Data Vital Signs (Past 12 Hours) Vital Signs Temp Pulse Pulse Resp BP BP Pulse Ox 05/11/23 06:15 36.6 C 71 16 114/75 98 05/11/23 03:17 36.7 C 69 18 112/75 97 05/10/23 22:14 74 05/10/23 22:58 36.7 C 70 16 121/78 99 05/10/23 20:30 36.6 C 87 16 135/89 97 O2 Del Method 05/11/23 06:15 Room Air 05/11/23 03:17 Room Air 05/10/23 22:14 05/10/23 22:58 Room Air 05/10/23 20:30 Room Air Resident Activity Tracking Resident Involvement: Resident Care Provided Care Provided: Adult Hospital Medicine (1) Alcohol withdrawal syndrome Complication of substance-induced condition: uncomplicated Qualified Code(s): F10.930 - Alcohol use, unspecified with withdrawal, uncomplicated
[2023-05-11] MEDS: FOLIC ACID 1 MG TAB PO SCH (08:03)
[2023-05-11] MEDS: THIAMINE HCL 100 MG TAB PO SCH (08:03)
[2023-05-11] MEDS ORDERED: LOPERAMIDE HCL 2 MG CAP PO STA (14:40)
--- NOTE | 2023-05-11 19:18 | Billing Data ---
Date of Service May 11, 2023 Coding Level of Care Code 84108 SUB INP/OBS CARE
--- NOTE | 2023-05-11 19:18 | Billing Data ---
Date of Service May 11, 2023 Coding Level of Care Code 56342 SUB INP/OBS CARE
--- NOTE | 2023-05-12 08:01 | Hospitalist Progress Note ---
Date of Service May 12, 2023 Assessment & Plan (1) Alcohol withdrawal syndrome: (2) Transaminitis: (3) Alcoholic: Plan Collin Alejandro is a 33yo male with history of alcohol abuse who presented in withdrawal. He drinks 10 12oz high EtOH beers daily (appx 18-20 units of EtOH /day). Last drink was appx 8 hours prior to arrival 05/07/23. He has been cutting back for the last several days - has had mild withdrawal symptoms x 2 days prior to arrival. EtOH level of 433 at time of admission. Alcohol withdrawal syndrome - Librium taper, end on 05/11. - Ativan PRN (patient has not required) - Thiamine and Folic acid daily. - Zofran PRN for nausea - Tylenol PRN for pain/fever --- No active tremors or evidence of DT, vitals stable, no active hallucination --- Completed Librium taper 05/11, no symptom recurrence Alcohol Abuse - CM consulted for assistance with disposition planning, requesting rehabilitation * Patient currently w/o insurance, will likely benefit from medical assistance, CM following - Resources given to the patient on 05/09 --- --- CM aware of dispo plans to rehab facility, pending medical assistance and placement Transaminitis - Acute alcohol hepatitis/transaminitis present on admission (AST 130/ALT 61), INR/platelets/albumin wnl * On 05/09 labs elevated to: AST 430/ALT 125, alk phos elevated, elevated bilir ubin 2.8, decreased platelet count, albumin stable No active abdominal pain, nausea, or emesis Liver US - hepatic steatosis, no additional abnormalities * On 05/10- labs improving: AST, ALT, Alk Phos, Bilirubin downtrending, Plt count up to 85, continue to follow (no active bleeding) No active abdominal pain, nausea, or emesis - No need for glucocorticoid therapy at this time. * (-0.4 points) discriminant function --- Labs improving, patient remains asymptomatic Hypokalemia (05/12) - Decreased to 3.1 - Repleted with KCl PO - Recheck in AM F/E/N - Heplock. Electrolytes wnl. ADAT. IVF d/c 05/10. Ppx - Low risk for DVT, ambulation as tolerated Code - Full Dispo - [facility], discharge w/ family, pending medical assistance Admission and Anticipated Discharge Date Admission Date: May 07, 2023 Supervising Physician Co-Signing Physician Notes I personally examined the patient and verified all joe points of history and exam, discussed case, and agree with decision making with Dr Salinas No new problems. Working through MA process and finding a rehab bed Vitals noted, in general he is awake and alert pleasant no distress. HEENT normocephalic atraumatic mucous membranes moist. Breathing unlabored no accessory muscle use good effort. Skin shows no rashes no pallor or icterus. Neuro without focal deficits. Alcohol abuse/withdrawalimproving. Anxiety/depression likely underlyingagree with there plan for transfer to a dual diagnosis facility. Right now keep him in the hospital and arrangements are being made and to keep him safe. has had extensive discussions on stress management and self management of anxiety/depression tools Subjective 05/12: Patient enjoying breakfast upon arrival Patient denies tremors, hallucinations, nausea, or emesis. He is not experiencing any abdominal pain, chest pain, headaches, dyspnea, fevers, or chills. Patient plans discharge to [facility], parents agreeable to help with transport. Discussed plan with patient and pending medical assistance. Questions answered. Physical Exam Physical Exam: Gen: NAD, alert, interactive Neuro: AO x 3, no focal neurologic deficits HEENT: NCAT, no conjunctival injections Resp:Non-labored, no wheezing/rhonchi/rales, CTAB CV:RRR, normal S1/S2, no M/R/G Abd: Soft, non-distended, no TTP, normoactive bowels, no masses Extr: 2+ dp bilaterally, no edema, no tremors appreciated, strength 5/5 in UE and LE Skin: No rashes lesions or erythema Results & Data Results & Data Vital Signs (Past 12 Hours) Vital Signs Temp Pulse Pulse Resp BP Pulse Ox O2 Del Method 05/12/23 07:22 36.5 C 64 16 107/70 96 Room Air 05/11/23 20:05 37.1 C 85 16 141/88 H 96 Room Air Resident Activity Tracking Resident Involvement: Resident Care Provided Care Provided: Adult Hospital Medicine (1) Alcohol withdrawal syndrome Complication of substance-induced condition: uncomplicated Qualified Code(s): F10.930 - Alcohol use, unspecified with withdrawal, uncomplicated
[2023-05-12 08:34] LABS: Hematocrit (blood only) 36.7 % (42.0-52.0); Mean Corpuscular Hemoglobin 34.2 pg (25.0-34.0); Mean Corpuscular Hgb Conc 35.4 g/dL (32.0-36.0); Mean Corpuscular Volume 96.6 fL (80.0-100.0); Mean Platelet Volume 10.5 fL (9.4-12.4); Platelet Count 85 K/uL (130-400); RDW Coefficient of Variation 11.3 % (11.5-14.5); RDW Standard Deviation 39.9 fL (36.4-46.3); White Blood Count 4.56 K/ul (4.8-10.8)
[2023-05-12] MEDS: FOLIC ACID 1 MG TAB PO SCH (08:47)
[2023-05-12] MEDS: THIAMINE HCL 100 MG TAB PO SCH (08:47)
[2023-05-12 09:01] LABS: Alanine Aminotransferase 75 U/L (7-52); Albumin Globulin Ratio 1.3 (0.9-2); Albumin Level 3.8 gm/dl (3.4-5.0); Alkaline Phosphatase 108 U/L (34-104); Anion Gap 7 (3-11); Aspartate Aminotransferase 101 U/L (13-39); BUN Creatinine Ratio 10.5 (10-20); Bilirubin,Total 1.3 mg/dl (0.2-1.0); Blood Urea Nitrogen 6 mg/dl (6-23); Calcium 9.1 mg/dl (8.6-10.3); Carbon Dioxide 26 mmol/L (21-32); Chloride 106 mmol/L (98-107); Creatinine Clr Calc Pharmacy 217.7 ml/min; Est GFR (African American) > 150.0 ml/min; Globulin 2.9 gm/dl (2.5-4.0); Glucose 95 mg/dl (70-99(Fasting)); Potassium 3.1 mmol/L (3.5-5.1); Sodium 139 mmol/L (136-145); Total Protein 6.7 gm/dl (6.0-8.3)
[2023-05-12] MEDS ORDERED: POTASSIUM CHLORIDE CRTAB 20 MEQ TABCR PO STA (10:30)
--- NOTE | 2023-05-12 19:24 | Billing Data ---
Date of Service May 12, 2023 Coding Level of Care Code 59659 SUB INP/OBS CARE
--- NOTE | 2023-05-13 06:50 | Hospitalist Progress Note ---
Date of Service May 13, 2023 Assessment & Plan (1) Alcohol withdrawal syndrome: (2) Transaminitis: (3) Alcoholic: Plan Collin Alejandro is a 33yo male with history of alcohol abuse who presented in withdrawal. He drinks 10 12oz high EtOH beers daily (appx 18-20 units of EtOH /day). Last drink was appx 8 hours prior to arrival 05/07/23. He has been cutting back for the last several days - has had mild withdrawal symptoms x 2 days prior to arrival. EtOH level of 433 at time of admission. Alcohol withdrawal syndrome - Librium taper, end on 05/11. - Ativan PRN (patient has not required) - Thiamine and Folic acid daily. - Zofran PRN for nausea - Tylenol PRN for pain/fever --- Completed Librium taper 05/11, no symptom recurrence Alcohol Abuse - CM consulted for assistance with disposition planning, requesting rehabilitation * Patient currently w/o insurance, will likely benefit from medical assistance, CM following - Resources given to the patient on 05/09 --- --- CM aware of dispo plans to rehab facility, pending medical assistance and placement Transaminitis - Acute alcohol hepatitis/transaminitis present on admission (AST 130/ALT 61), INR/platelets/albumin wnl * On 05/09 labs elevated to: AST 430/ALT 125, alk phos elevated, elevated bilirubin 2.8, decreased platelet count, albumin stable No active abdominal pain, nausea, or emesis Liver US - hepatic steatosis, no additional abnormalities * On 05/10- labs improving: AST, ALT, Alk Phos, Bilirubin downtrending, Plt count up to 85, continue to follow (no active bleeding) No active abdominal pain, nausea, or emesis - No need for glucocorticoid therapy at this time. * (-0.4 points) discriminant function --- Labs improving, patient remains asymptomatic Hypokalemia (05/12) - Decreased to 3.1 - Repleted with KCl PO - Recheck in AM F/E/N - Heplock. Electrolytes wnl. ADAT. IVF d/c 05/10. Ppx - Low risk for DVT, ambulation as tolerated Code - Full Dispo - [facility], discharge w/ family, pending medical assistance Admission and Anticipated Discharge Date Admission Date: May 07, 2023 Subjective 05/13: Patient comfortable in bed upon arrival with parents at bedside. Collin denies any tremors, hallucinations, abdominal pain, nausea, or emesis. He has no acute concerns today. Patient and parent's conform that plan remains to transition to rehab facility, but they are currently waiting on bed availability/insurance. Questions and concerns addressed. Physical Exam Physical Exam: Gen: NAD, alert, interactive Neuro: AO x 3, no focal neurologic deficits HEENT: NCAT, no conjunctival injections Resp:Non-labored, no wheezing/rhonchi/rales, CTAB CV:RRR, normal S1/S2, no M/R/G Abd: Soft, non-distended, no TTP, normoactive bowels, no masses Extr: 2+ dp bilaterally, no edema, no tremors appreciated Results & Data Results & Data Vital Signs (Past 12 Hours) Vital Signs Temp Pulse Resp BP Pulse Ox O2 Del Method 05/12/23 20:18 37.0 C 90 16 125/84 98 Room Air Resident Activity Tracking Resident Involvement: Resident Care Provided Care Provided: Adult Hospital Medicine (1) Alcohol withdrawal syndrome Complication of substance-induced condition: uncomplicated Qualified Code(s): F10.930 - Alcohol use, unspecified with withdrawal, uncomplicated
[2023-05-13 07:42] LABS: Hematocrit (blood only) 37.9 % (42.0-52.0); Hemoglobin 13.1 g/dl (14.0-18.0); Mean Corpuscular Hemoglobin 33.9 pg (25.0-34.0); Mean Corpuscular Hgb Conc 34.6 g/dL (32.0-36.0); Mean Corpuscular Volume 98.2 fL (80.0-100.0); Mean Platelet Volume 10.8 fL (9.4-12.4); Platelet Count 92 K/uL (130-400); RDW Coefficient of Variation 11.5 % (11.5-14.5); Red Blood Count 3.86 M/uL (4.70-6.10); White Blood Count 5.01 K/ul (4.8-10.8)
[2023-05-13 08:04] LABS: Albumin Globulin Ratio 1.4 (0.9-2); Albumin Level 3.9 gm/dl (3.4-5.0); BUN Creatinine Ratio 9.1 (10-20); Calcium 9.5 mg/dl (8.6-10.3); Est GFR (African American) 145.2 ml/min; Est GFR (Non-African American) 125.3 ml/min; Globulin 2.7 gm/dl (2.5-4.0); Potassium 3.7 mmol/L (3.5-5.1); Total Protein 6.6 gm/dl (6.0-8.3)
[2023-05-13] MEDS: FOLIC ACID 1 MG TAB PO SCH (08:22)
[2023-05-13] MEDS: THIAMINE HCL 100 MG TAB PO SCH (08:22)
[2023-05-13 15:36] VITALS: TEMP 98.4; O2SAT 100
--- NOTE | 2023-05-13 15:39 | Discharge Summary ---
Date of Service May 13, 2023 Admission HPI Per Admitting Provider Collin Alejandro is a 33yo male with history of EtOH abuse, prior withdrawal presenting with EtOH intoxication - possible withdrawal symptoms. Patient reports drinking approximately 10 12oz high alcohol (8%) beers daily. Last drink was approximately 8 hours prior to arrival. He denies drinking liquor or wine. Denies additional substance use. He has been trying to cut down on his alcohol intake for the last several days. He developed some mild withdrawal symptoms today prior to arrival - symptoms have been progressing over the last two days. ER Course: Ativan MVI Banana bag Admission Exam Per Admitting Provider General: patient resting comfortably, NAD, non-toxic in appearance, AA&O x 4 Skin: warm, dry, intact, no rashes or lesions HEENT: NC/AT, PERRL, EOMI, anicteric sclera, conjunctiva without injection, external ear normal to inspection and nontender, nares patent, moist mucus membranes, dentition intact, no oropharyngeal lesions, neck supple, trachea midline, no LAD, no thyromegaly, no JVD Heart: +S1/S2, regular, tachycardic, no m/r/g Lungs: equal air entry bilaterally, no rales/rhonchi/wheezes Abd: +BS, soft, NT/ND, no masses/organomegaly/ascites Ext: warm, 2+ pulses in UE/LE bilaterally, no clubbing/cyanosis or edema Neuro: nonfocal, patient AA&O x 4, speech intact, no facial droop, moving all extremities on command with equal strength 5/5 Principal Diagnosis Alcohol Withdrawal Discharge Exam Gen: NAD, alert, interactive Neuro: AO x 3, no focal neurologic deficits HEENT: NCAT, no conjunctival injections Resp:Non-labored, no wheezing/rhonchi/rales, CTAB CV:RRR, normal S1/S2, no M/R/G Abd: Soft, non-distended, no TTP, normoactive bowels, no masses Extr: 2+ dp bilaterally, no edema, no tremors appreciated Discharge Data Allergies Allergy/AdvReac Type Severity Reaction Status Date / Time Cephalosporins Allergy Unknown . Unverified 05/08/23 17:26 Consultations 05/07/23 22:36 ED Decision to Admit Stat Ordered Studies 05/09/23 10:08 US RUQ [US liver] Urgent Hospital Course (1) Alcohol withdrawal syndrome: (2) Transaminitis: (3) Alcoholic: Plan Collin Alejandro is a 33yo male with history of alcohol abuse who presented in withdrawal. He drinks 10 12oz high EtOH beers daily (appx 18-20 units of EtOH/day). Last drink was appx 8 hours prior to arrival 05/07/23. He has been cutting back for the last several days - has had mild withdrawal symptoms x 2 days prior to arrival. EtOH level of 433 at time of admission. Alcohol withdrawal syndrome - Librium taper, end on 05/11. - Ativan PRN (patient has not required) - Thiamine and Folic acid daily. - Zofran PRN for nausea - Tylenol PRN for pain/fever --- Completed Librium taper 05/11, no symptom recurrence Alcohol Abuse - CM consulted for assistance with disposition planning, requesting rehabilitation * Patient currently w/o insurance, will likely benefit from medical assistance, CM following- Resources given to the patient on 05/09 --- CM aware of dispo plans to rehab facility, pending medical assistance --- Discharge to home with family for subsequent transition to rehab Transaminitis - Acute alcohol hepatitis/transaminitis present on admission (AST 130/ALT 61), INR/platelets/albumin wnl * On 05/09 labs elevated to: AST 430/ALT 125, alk phos elevated, elevated bilirubin 2.8, decreased platelet count, albumin stable No active abdominal pain, nausea, or emesis Liver US - hepatic steatosis, no additional abnormalities * On 05/10- labs improving: AST, ALT, Alk Phos, Bilirubin downtrending, Plt count up to 85, continue to follow (no active bleeding) No active abdominal pain, nausea, or emesis - No need for glucocorticoid therapy at this time. * (-0.4 points) discriminant function --- Labs improving, patient remains asymptomatic, follow up labs in 7-10 days to ensure resolution/improvement Hypokalemia (05/12) - Decreased to 3.1 - Repleted with KCl PO - Recheck in AM F/E/N - Regular Ppx - Low risk for DVT, ambulation as tolerated Code - Full Dispo - Rehab, discharge w/ family Total Time Total Time Spent Total Time Spent (In Minutes): <30 Discharge Plan Discharge Items Patient Disposition: Home - Self-Care Reason For Visit: ETOH WITHDRAWAL Discharge Diagnosis: Alcohol Withdrawal Activity: Per Instructions section Non-emergency contact: Primary Care Provider Call non-emergency contact if: your symptoms worsen Follow-up/Referrals: Aron Cameron MD [Primary Care Provider] - Diet: Regular Addtl Attending Provider Instructions: You were admitted to the hospital for medical support during alcohol detoxification/withdrawal. During your admission you received a medication called Librium (Chlordiazepoxide) to mitigate withdrawal symptoms (tremor). Following completion of the Librium taper, there was no recurrence of your symptoms. Upon admission, you had some lab abnormalities; elevated bilirubin, AST, ALT, and Alk Phos as well as decreased platelet levels. During your admission, your bilirubin, AST, ALT, and Alk Phos gradually were trending down while your platelet level poonam back towards normal. Ultimately, I would recommend follow up with your PCP within 7-10 days of discharge to ensure ongoing resolution of the above lab abnormalities. Based on our discussion inpatient, it is your goal to transition to a dual alcohol and mental health treatment program after discharge. You will be discharged to home with admission to rehabilitation facility closely following discharge. Recommendations: - Follow up with PCP 7-10 days following discharge * Evaluate CBC and CMP 7-10 days following discharge to ensure ongoing improvement in lab abnormalities above - Discharge to home for short term care by family, followed by admission to rehabilitation program It was a pleasure to be a part of your care, Dr. Sung Salinas Pending Studies at Discharge: No Stand-Alone Forms: My [facility] [employer], Smoking Cessation Medications and DC Order Prescriptions: Continued albuterol sulfate 90 mcg/actuation HFA aerosol inhaler 2 puff INHALATION .Q4-6H PRN (Reason: WHEEZING/COUGHING/SHORTNESS OF BREATH) Discharge Orders: Discharge Order (Routine); Ordered 05/13/23 Ordered By: Sung Garcia/Other Patient Handouts: Alcohol Withdrawal: What to Expect Admission Data Admit Date/Time: 05/07/23 22:53 Attending Provider: Edd Lucas Admit Provider: Katerin Alves Primary Care Provider: Aron Cameron Other Providers: Katerin Alves Other Interventions: Discharge Summary Assessment (RN) Last Done: 05/13/23 16:32 Supervising Physician Co-Signing Physician Notes I personally examined the patient and verified all joe points of history and exam, discussed case, and agree with decision making with Dr Salinas process far enough along he/family would like to go home. case management has things as far as they can - just waiting on determination from [facility] Vitals noted, in general he is awake and alert pleasant no distress. HEENT normocephalic atraumatic mucous membranes moist. Breathing unlabored no accessory muscle use good effort. Skin shows no rashes no pallor or icterus. Neuro without focal deficits. Alcohol abuse/withdrawalimproving. Anxiety/depression likely underlyingsafe for home w family, plan for rehab. Resident Activity Tracking Resident Involvement: Resident Care Provided Care Provided: Adult Hospital Medicine
[2023-05-13 16:36] VITALS: BP 112/77; PULSE 85
--- NOTE | 2023-05-13 19:36 | Billing Data ---
Date of Service May 13, 2023 Coding Level of Care Code 21956 IN/OBS DISCH 30 MIN/LESS
== END 2023-05-13 16:53 | disposition home or self-care (01) | DRG 897 ==
LOC: ED 20:10 → 2E 22:53 → SUATTDRO 22:53 → 2E 05-08 → 3N 05-11 17:22